=== PATIENT | male | born 1995 | race Caucasian/White ===

== ENCOUNTER 2017-08-23 08:00 | Outpatient (RCR) | payer BC ==
[2017-08-09 13:25] VITALS: BP 137/88; PULSE 93; TEMP 98.6
[2017-08-10 10:19] VITALS: BP 148/86; PULSE 88; TEMP 98.2
[2017-08-11 08:06] VITALS: BP 132/69; PULSE 85; TEMP 98.4
[2017-08-12 08:40] VITALS: BP 155/90; PULSE 95; TEMP 98
[2017-08-12 09:18] VITALS: BP 155/90; PULSE 95; TEMP 98
[2017-08-13 08:25] VITALS: BP 138/93; PULSE 87; TEMP 98.1
[2017-08-14 08:18] VITALS: BP 151/82; PULSE 81; TEMP 97.4
[2017-08-15 08:12] VITALS: BP 147/63; PULSE 88; TEMP 97.9
[2017-08-15 09:19] LABS: HEMATOCRIT 45.1 % (42.0-52.0); HEMOGLOBIN 14.9 g/dl (13.5-18.0); MEAN CELL VOLUME 90 fl (80.0-100.0); MEAN CORPUSCULAR HEMOGLOBIN 30 pg (27.0-31.0); MEAN CORPUSCULAR HGB CONC 33 g/dl (33.0-37.0); MEAN PLATELET VOLUME 9.9 fl (7.4-10.4); PLATELET COUNT 346 K/mm3 (130-400); RED BLOOD COUNT 5.03 M/mm3 (4.20-5.60); WHITE BLOOD COUNT 12.3 K/mm3 (4.8-10.8)
[2017-08-15 09:37] LABS: ADJUSTED CALCIUM 9.4 mg/dL (8.4-10.2); ALBUMIN 4.3 gm/dL (3.5-5.0); BILIRUBIN,TOTAL 0.9 mg/dL (0.0-1.0); C-REACTIVE PROTEIN 2.2 mg/dL (0.0-0.9); CALCIUM 9.6 mg/dL (8.4-10.2); POTASSIUM 4.1 mmol/L (3.4-5.0); TOTAL PROTEIN 8.1 gm/dL (6.4-8.2)
[2017-08-15 10:30] LABS: CREATININE, serum 0.69 mg/dL (0.66-1.25)
[2017-08-16 08:23] VITALS: BP 129/85; PULSE 72; TEMP 97.7
[2017-08-17 08:25] VITALS: BP 142/77; PULSE 81; TEMP 98.1
[2017-08-18 09:02] VITALS: BP 144/93; PULSE 81; TEMP 97.7
[2017-08-20 08:31] VITALS: BP 150/101; PULSE 75; TEMP 97.9
[2017-08-21 09:16] VITALS: BP 144/77; PULSE 88; TEMP 98.6
[2017-08-22 08:23] LABS: BASO # 0.1 (0.0-0.2); BASO % 0.4 % (0.0-2.0); EOS # 0.1 (0.0-0.7); EOS % 0.9 % (0-4.0); GRAN # 9.9 (1.4-6.5); GRAN % 72.6 % (42.2-75.2); HEMATOCRIT 43.6 % (42.0-52.0); HEMOGLOBIN 14.4 g/dl (13.5-18.0); LYMPH # 2.6 (1.2-3.4); LYMPH % 19.3 % (20.0-51.0); MEAN CELL VOLUME 90 fl (80.0-100.0); MEAN CORPUSCULAR HEMOGLOBIN 30 pg (27.0-31.0); MEAN CORPUSCULAR HGB CONC 33 g/dl (33.0-37.0); MEAN PLATELET VOLUME 9.9 fl (7.4-10.4); MONO # 0.8 (0.1-0.6); PLATELET COUNT 351 K/mm3 (130-400); RED BLOOD COUNT 4.84 M/mm3 (4.20-5.60); WHITE BLOOD COUNT 13.7 K/mm3 (4.8-10.8)
[2017-08-22 08:31] LABS: ADJUSTED CALCIUM 9.2 mg/dL (8.4-10.2); BILIRUBIN,TOTAL 0.7 mg/dL (0.0-1.0); C-REACTIVE PROTEIN 2.7 mg/dL (0.0-0.9); CALCIUM 9.2 mg/dL (8.4-10.2); CREATININE, serum 0.72 mg/dL (0.66-1.25); POTASSIUM 4.1 mmol/L (3.4-5.0); TOTAL PROTEIN 7.7 gm/dL (6.4-8.2)
[2017-08-22 08:36] VITALS: BP 146/82; PULSE 87; TEMP 98.1
[~2017-08-23] VITALS: Ht 182.9 cm; Wt 175.0 kg
[~2017-08-23 08:00] MED LIST: CONTRAVE1 TER PO; HCTZ 25MG TAB25 MG PO
[2017-08-23 08:08] VITALS: BP 152/86; PULSE 87; TEMP 97.5
== END 2017-08-24 08:42 | disposition home or self-care (01) ==
LOC: EUO 08:00
PROVIDERS: Internal Medicine
DX: L03.211 Cellulitis of face (principal); Z98.818 Other dental procedure status
CPT/HCPCS: C1751; J1335; J1644; J7050

== ENCOUNTER 2017-09-16 07:30 | Outpatient (RCR) | payer BC ==
[2017-08-26 08:21] VITALS: BP 130/67; PULSE 82; TEMP 97.6
[2017-08-27 08:23] VITALS: BP 147/82; PULSE 96; TEMP 97.8
[2017-08-28 08:19] VITALS: BP 152/76; PULSE 91; TEMP 98
[2017-08-29 08:07] VITALS: BP 152/96; PULSE 100; TEMP 99.2
[2017-08-30 08:30] VITALS: BP 140/61; PULSE 93; TEMP 98.6
[2017-08-31 08:09] VITALS: BP 151/64; PULSE 92
[2017-08-31 08:20] LABS: BASO % 0.3 % (0.0-2.0); EOS # 0.1 (0.0-0.7); EOS % 0.9 % (0-4.0); GRAN # 11.1 (1.4-6.5); GRAN % 73.9 % (42.2-75.2); HEMATOCRIT 40.9 % (42.0-52.0); HEMOGLOBIN 13.2 g/dl (13.5-18.0); LYMPH # 2.9 (1.2-3.4); LYMPH % 19.3 % (20.0-51.0); MEAN CELL VOLUME 91 fl (80.0-100.0); MEAN CORPUSCULAR HEMOGLOBIN 29 pg (27.0-31.0); MEAN CORPUSCULAR HGB CONC 32 g/dl (33.0-37.0); MEAN PLATELET VOLUME 9.8 fl (7.4-10.4); MONO # 0.7 (0.1-0.6); MONO % 4.5 % (1.7-9.3); PLATELET COUNT 330 K/mm3 (130-400); RED BLOOD COUNT 4.49 M/mm3 (4.20-5.60); REDCELL DISTRIBUTION WIDTH-CV 12.3 % (11.5-14.5)
[2017-08-31 08:33] LABS: ALBUMIN 3.9 gm/dL (3.5-5.0); BILIRUBIN,TOTAL 0.9 mg/dL (0.0-1.0); C-REACTIVE PROTEIN 5.4 mg/dL (0.0-0.9); CALCIUM 9.2 mg/dL (8.4-10.2); CREATININE, serum 0.72 mg/dL (0.66-1.25); POTASSIUM 4.1 mmol/L (3.4-5.0); TOTAL PROTEIN 7.6 gm/dL (6.4-8.2)
[2017-09-01 08:10] VITALS: BP 142/82; PULSE 81; TEMP 98.2
[2017-09-02 08:28] VITALS: BP 162/90; PULSE 88; TEMP 98.6
[2017-09-03 07:53] VITALS: BP 138/74; PULSE 90; TEMP 97.6
[2017-09-04 07:55] VITALS: BP 147/71; PULSE 79; TEMP 97.8
[2017-09-05 07:59] VITALS: BP 141/75; PULSE 82; TEMP 97.7
[2017-09-05 08:07] LABS: HEMATOCRIT 42.3 % (42.0-52.0); HEMOGLOBIN 13.8 g/dl (13.5-18.0); MEAN CELL VOLUME 90 fl (80.0-100.0); MEAN CORPUSCULAR HEMOGLOBIN 29 pg (27.0-31.0); MEAN CORPUSCULAR HGB CONC 33 g/dl (33.0-37.0); PLATELET COUNT 321 K/mm3 (130-400); RED BLOOD COUNT 4.69 M/mm3 (4.20-5.60); REDCELL DISTRIBUTION WIDTH-CV 12.3 % (11.5-14.5)
[2017-09-05 08:19] LABS: ALBUMIN 4.1 gm/dL (3.5-5.0); BILIRUBIN,TOTAL 0.6 mg/dL (0.0-1.0); C-REACTIVE PROTEIN 2.7 mg/dL (0.0-0.9); CALCIUM 9.5 mg/dL (8.4-10.2); CREATININE, serum 0.72 mg/dL (0.66-1.25); POTASSIUM 3.8 mmol/L (3.4-5.0); TOTAL PROTEIN 7.9 gm/dL (6.4-8.2)
[2017-09-06 07:41] VITALS: BP 148/82; PULSE 88; TEMP 98.3
[2017-09-07 07:30] VITALS: BP 138/72; PULSE 91; TEMP 97.8
[2017-09-08 07:30] VITALS: BP 149/88; PULSE 86; TEMP 97.7
[2017-09-09 07:35] VITALS: BP 146/83; PULSE 82; TEMP 98
[2017-09-10 07:50] VITALS: BP 140/77; PULSE 81
[2017-09-11 08:09] VITALS: BP 131/80; PULSE 73; TEMP 98.2
[2017-09-12 07:43] VITALS: BP 146/82; PULSE 86; TEMP 98.2
[2017-09-12 08:32] LABS: BILIRUBIN,TOTAL 0.8 mg/dL (0.0-1.0); C-REACTIVE PROTEIN 2.4 mg/dL (0.0-0.9); CALCIUM 9.5 mg/dL (8.4-10.2); CREATININE, serum 0.68 mg/dL (0.66-1.25); POTASSIUM 4.3 mmol/L (3.4-5.0); TOTAL PROTEIN 7.5 gm/dL (6.4-8.2)
[2017-09-12 08:40] LABS: HEMATOCRIT 42.9 % (42.0-52.0); HEMOGLOBIN 13.8 g/dl (13.5-18.0); MEAN CELL VOLUME 91 fl (80.0-100.0); MEAN CORPUSCULAR HEMOGLOBIN 29 pg (27.0-31.0); MEAN CORPUSCULAR HGB CONC 32 g/dl (33.0-37.0); MEAN PLATELET VOLUME 10.3 fl (7.4-10.4); PLATELET COUNT 315 K/mm3 (130-400); RED BLOOD COUNT 4.71 M/mm3 (4.20-5.60); REDCELL DISTRIBUTION WIDTH-CV 12.5 % (11.5-14.5)
[2017-09-14 07:47] VITALS: BP 136/69; PULSE 78; TEMP 97.4
[2017-09-15 07:38] VITALS: BP 100/66; PULSE 88; TEMP 97.5
[~2017-09-16] VITALS: Ht 182.9 cm; Wt 172.0 kg
[2017-09-16 07:42] VITALS: BP 134/81; PULSE 92; TEMP 97.5
== END 2017-09-16 14:01 | disposition home or self-care (01) ==
LOC: EUO 07:30
PROVIDERS: Internal Medicine; Internal Medicine Infectious Disease
DX: L03.211 Cellulitis of face (principal)
CPT/HCPCS: J1335; J1644; J7050